=== PATIENT | female | born 1985 | race Hispanic/Latino ===

== ENCOUNTER 2022-05-23 07:27 | Emergency (ER) | payer OTHER ==
[~2022-05-23] VITALS: Ht 167.6 cm; Wt 54.4 kg
[2022-05-23 07:31] VITALS: BP 111/76
[2022-05-23] MEDS ORDERED: ACETAMINOPHEN 500 MG TABLET PO STA (08:11)
[2022-05-23] MEDS ORDERED: LIDOCAINE HCL 1% 20 ML VIAL INJ STA (08:11)
[2022-05-23] MEDS ORDERED: TETANUS/DIPHTHERIA TOXOID [ADULT] 0.5 ML VIAL IM ONE (08:30)
[2022-05-23] MEDS ORDERED: NEOM28.36 TP (08:56)
== END 2022-05-23 09:06 | disposition home or self-care (01) ==
LOC: EDH 07:27
DX: S01.81XA Laceration without foreign body of other part of head, initial encounter (principal); S63.501A Unspecified sprain of right wrist, initial encounter; W19.XXXA Unspecified fall, initial encounter; Y93.89 Activity, other specified; Y92.098 Other place in other non-institutional residence as the place of occurrence of the external cause; Y99.8 Other external cause status
CPT/HCPCS: 12011; 73110; 90471; 90714